=== PATIENT | female | born 2000 | race Two or more races ===

== ENCOUNTER 2021-10-19 14:43 | Outpatient (CLI) | payer OTHER, SELFPAY ==
[2021-10-19 09:55] LABS: Albumin* 4.6 g/dL (3.3-5.0); Chloride* 104 mmol/L (96-114); Sodium* 140 mmol/L (135-149)
[2021-10-19 09:57] LABS: Cholesterol* 151 mg/dL (90-199); Creatinine* 0.6 mg/dL (0.5-1.5); Estimated Glomerular Filt Rate 129 ml/min
[2021-10-19 09:58] LABS: Alanine Aminotransferase* 66 U/L (4-35); Alkaline Phosphatase* 72 U/L (40-150); Aspartate Amino Transferase* 47 U/L (12-35); Bilirubin Total* 1.1 mg/dL (0.1-1.5); Blood Urea Nitrogen* 7 mg/dL (5-24); Carbon Dioxide* 29 mmol/L (20-32); Glucose* 93 mg/dL (60-115); Total Protein* 7.9 g/dL (6.0-8.3); Triglycerides* 113 mg/dL (40-149)
[2021-10-19 09:59] LABS: Calcium* 9.5 mg/dL (8.4-10.6); HDL Cholesterol* 82 mg/dL (>=50); LDL Cholesterol Calculated 46 mg/dL (<100)
[2021-10-19 10:28] LABS: Vitamin D 25 Hydroxy* 35 ng/mL (30-80)
[2021-10-19 10:46] LABS: Ferritin* 22.2 ng/mL (6.24-137.0); Vitamin B12* 629 pg/mL (243-894)
== END 2021-10-19 14:44 | disposition home or self-care (01) ==
PROVIDERS: PCP Family Medicine; Visit Provider Family Medicine
DX: Z00.00 Encounter for general adult medical examination without abnormal findings (principal); R53.83 Other fatigue; E78.5 Hyperlipidemia, unspecified; Z13.29 Encounter for screening for other suspected endocrine disorder; Z78.9 Other specified health status
CPT/HCPCS: 80053; 80061; 82306; 82607; 82728; 84443

== ENCOUNTER 2022-01-13 08:01 | Outpatient (CLI) | payer OTHER, SELFPAY ==
[2022-01-13 12:08] LABS: Albumin* 4.4 g/dL (3.3-5.0)
[2022-01-13 12:11] LABS: Alanine Aminotransferase* 17 U/L (4-35); Alkaline Phosphatase* 58 U/L (40-150); Aspartate Amino Transferase* 26 U/L (12-35); Bilirubin Direct* 0.1 mg/dL (0.0-0.5); Total Protein* 7.4 g/dL (6.0-8.3)
[2022-01-13 12:23] LABS: Ferritin* 24.9 ng/mL (6.24-137.0)
== END 2022-01-13 08:02 | disposition home or self-care (01) ==
PROVIDERS: PCP Family Medicine; Visit Provider Family Medicine
DX: R79.89 Other specified abnormal findings of blood chemistry (principal); R53.83 Other fatigue
CPT/HCPCS: 80076; 82728

== ENCOUNTER 2022-02-22 10:45 | Outpatient (RCR) | payer OTHER, SELFPAY | END 2022-02-22 11:40 | disposition home or self-care (01) | PROVIDERS: PCP Family Medicine; Visit Provider Nurse Practitioner Adult Health | DX: M79.605 Pain in left leg (principal); Z51.89 Encounter for other specified aftercare | CPT/HCPCS: 97110; 97112; 97161 ==